=== PATIENT | male | born 1945 | race Caucasian/White ===

== ENCOUNTER 2017-09-14 10:44 | Outpatient (CLI) | payer MEDICARE ==
--- NOTE | 2017-09-14 14:08 | MRI ---
MRI LEFT ANKLE WITHOUT CONTRAST: Date: 09/14/17 HISTORY: Closed fracture of the left foot with routine healing. COMPARISON: Radiograph dated 09/01/17. FINDINGS: Ligaments: Exam limited due to large field of view used. There is a fracture of the posterior malleolus with meaghan e edema along the fracture margin. The fractures involves approximately 30-35% of the articular surfa ce. There is likely chronic rupture of the ATFL, though is poorly visualized on this exam. There is mild lateral subluxation of the second tarsometatarsal joint, as well as dorsal displacement of the second tarsometatarsal joint. This suggests a rupture of the Lisfranc ligament that is age in determinate. There is mild edema of the first, second, and third metatarsal base, as well as the medi al and medial lateral cuneiform displaced fracture. Extensive dorsal midfoot edema. There is also abn ormal edema within the extensor digitorum brevis muscle, as well as severe atrophy of the intrinsic m usculature of the feet. IMPRESSION: 1. 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 2. Severe fatty atrophy of the intrinsic muscles of the foot. 3. Moderate dorsal edema at the midfoot. 4. Healing posterior malleolar fracture involving approximately 30-35% of the articular surface. 5. Dorsal displacement of the second and third tarsometatarsal joints. POS: [facility]
== END 2017-09-14 10:45 | disposition home or self-care (01) ==
LOC: TBSIIMAG 10:44
PROVIDERS: ATTEND Family Medicine
DX: S92.902D Unspecified fracture of left foot, subsequent encounter for fracture with routine healing (principal); S93.325D Dislocation of tarsometatarsal joint of left foot, subsequent encounter; S82.892D Other fracture of left lower leg, subsequent encounter for closed fracture with routine healing